=== PATIENT | male | born 1990 | race Hispanic/Latino ===

== ENCOUNTER 2022-06-18 10:10 | Observation (INO) ==
[2022-06-18] MEDS ORDERED: PIPERACILLIN SODIUM/TAZOBACTAM 3.375 GM in DEXTROSE 5% IN WATER 50 ML IV ONE (12:22)
[2022-06-18] MEDS ORDERED: VANCOMYCIN 1,500 MG in 0.9 % SODIUM CHLORIDE 500 ML IV ONE (12:22)
[2022-06-18] MEDS ORDERED: 0.9 % SODIUM CHLORIDE 1,000 ML IV ONE (12:23)
--- NOTE | 2022-06-18 12:57 | Emergency Department Note ---
Skin/Abscess/FB HPI General Chief complaint: Skin/Abscess/Rash Stated complaint: R leg swollen Time Seen by Provider: 06/18/22 12:00 Source: patient Mode of arrival: ambulatory Limitations: no limitations History of Present Illness HPI Narrative: 32-year-old male with history of IV drug use with last use several days ago presents for bilateral lower extremity cellulitis. Patient notes that he started feeling unwell on the . He had body aches and some subjective fevers and was taking ibuprofen and Tylenol for pain. 3 days ago he woke up and had left lower extremity redness and swelling, and then yesterday morning noted that they were both legs were hot and swollen. He took an antibiotic from a family member and waited to see if he would improve, but today he feels that the redness and swelling is even worse. Related Data Previous Rx's Medication Instructions Recorded buprenorphine HCl 8 mg sublingual 8 mg sublingual Q8H #90 tabs 06/04/22 tablet Allergies Allergy/AdvReac Type Severity Reaction Status Date / Time Naloxone Allergy Severe Anaphylaxis Verified 06/18/22 10:15 codeine Allergy Unknown Unknown, Verified 06/18/22 10:15 reaction happened years ago Review of Systems ROS ROS Narrative: Narrative: All systems ED: reviewed and negative except as stated. [facility] Narrative Patient History Narrative: Narrative: Medical/Surgical/Family History All Active Problems (Updated 06/18/22 @ 17:01 by Elena Sawyer PA-C) Cellulitis (Acute) Methamphetamine abuse (Acute) Opioid abuse, in remission (Acute) Encounter for monitoring of patient compliance in drug treatment program (Acute) Asthma (Acute ~1999) Anxiety (Acute ~2014) Smoker (Acute) History of intravenous drug abuse (Acute) Depression with anxiety (Acute) Scoliosis (Acute) Medical History (Updated 06/18/22 @ 17:01 by Elena Sawyer PA-C) Anxiety (~2014) Asthma (~1999) Depression with anxiety Wellbutrin - but it caused anger issues History of substance use disorder began in 2008 Opioid abuse, in remission [facility]2020 Buprenorphine 8mg #70 (has been filling rx dated back to 09/14/2015) w/ Dr Negrete Scoliosis Surgical History History of tonsillectomy (~2000) Family History Mother Family history of diabetes mellitus Alcohol abuse Methamphetamine addiction Grandfather Family history of high blood pressure Brother Addiction to drug Sister Marijuana abuse Social History Smoking Status: Never smoker Alcohol Intake Frequency: does not drink Substance Use: does not use and former substance user Exam Narrative Narrative: General: AOx3, NAD, nontoxic appearing. Pleasant and conversant. HEENT: PERRL, EOMI, normocephalic. Moist mucous membranes. Chest: Symmetric, no pain to palpation Respiratory: Lungs clear to auscultation bilaterally. No respiratory distress. Unlabored breathing. Heart: Tachycardic rate of 115 bpm and normal rhythm, no murmurs/clicks/rubs. Abdomen: Non-tender, Non distended, normal bowel tones. No organomegaly. Extremities: Warm and well perfused. Bilateral lower extremity circumferential erythema and hot to the touch, right> left. Right lower extremity with edema. The left leg has evidence of lymphangitis tracking up into the medial thigh. Patient also appears to have some erythema on the left dorsum of the hand and wrist extending to the mid forearm. Neuro: No focal deficits. Cranial nerves II-XII grossly normal. Skin: Warm dry, no obvious rashes or lesions. No evidence of abscess. Psych: Normal mood and affect Heme/Lymph: No abnormal bruising General Limitations: no limitations Course Course Course Narrative: 32-year-old male with history of IV drug use presents for bilateral lower extremity cellulitis and rule out bacteremia Reevaluation(s) Reevaluation #1: Obtain basic labs, CRP, hepatic panel, chest x-ray Establish IV and give IV fluids 30mL/kg per ideal body weight, and start Vanco and Zosyn Reevaluation #2: WBC is 11,900 with a neutrophil count of 8.97 Lactic acid is 1.4 CRP is 19 Right lower extremity Doppler ultrasound is negative for DVT but does show multiple reactive lymph nodes Patient's heart rate has improved 102 bpm with IV fluids Vital Signs Vital signs: Vital Signs Temperature 98 F 06/18/22 10:13 Pulse Rate 115 H 06/18/22 10:13 Respiratory Rate 16 06/18/22 10:13 Blood Pressure 141/84 06/18/22 10:13 Pulse Oximetry (%) 98 06/18/22 10:13 Oxygen Delivery Method 06/18/22 10:13 Temperature 98.8 F 06/18/22 16:51 Pulse Rate 89 06/18/22 16:51 Respiratory Rate 20 06/18/22 16:51 Blood Pressure 127/67 06/18/22 16:51 Pulse Oximetry (%) 100 06/18/22 16:51 Oxygen Delivery Method 06/18/22 16:51 MDM MDM Narrative Medical decision making narrative: Bilateral lower extremity cellulitis Recent IV drug use Patient is high risk for failure with outpatient management given his history of IV drug use and. I think he is appropriate for admission and ongoing IV antibiotics and evaluation. Blood cultures are also pending and if positive echocardiogram may be warranted to evaluate for endocarditis. Patient was given IV Zosyn and vancomycin and fluids. He is otherwise hemodynamically stable. I reached out to Dr. Bonilla for admission and he has accepted. Lab Data Result diagrams: 06/18/22 13:31 06/18/22 13:31 Labs: Lab Results 06/18/22 06/18/22 06/18/22 Range/Units 13:31 13:31 13:31 WBC 11.9 H (4.5-11.0) K/mcL RBC 5.11 (4.63-6.08) M/mcL Hgb 14.8 (13.7-17.5) g/dL Hct 42.2 (40.1-51.0) % MCV 82.6 (80.0-100.0) fL MCH 29.0 (26.0-34.0) pg MCHC 35.1 (31.0-36.0) g/dL RDW 12.0 (11.5-14.5) % Plt Count 312 (140-440) K/mcL MPV 10.2 (8.8-12.5) fL Immature Gran % (Auto) 1.0 H (0.0-0.5) % Neut % (Auto) 75.8 (38.0-78.0) % Lymph % (Auto) 14.4 L (15.5-49.0) % [place] % (Auto) 8.0 (1.0-12.0) % Eos % (Auto) 0.5 (0.0-7.0) % Baso % (Auto) 0.3 (0.0-2.0) % Lymph # (Auto) 1.71 (1.50-4.80) K/mcL [place] # (Auto) 0.95 H (0.10-0.90) K/mcL Eos # (Auto) 0.06 (0.00-0.70) K/mcL Baso # (Auto) 0.04 (0.00-0.30) K/mcL Seg Neutrophils % (38-78) % Lymphocytes % (15-49) % Monocytes % (Manual) (1-12) % Eosinophils % (Manual) (0-7) % Immature Gran # 0.12 H (0.00-0.05) K/mcl Absolute Neutrophils 8.97 H (1.80-8.00) K/mcL Platelet Estimate (Normal) RBC Morphology (Normal) VBG Lactic Acid 1.4 (0.5-2.0) mmol/L Sodium 134 (133-145) mmol/L Potassium 4.0 (3.3-5.1) mmol/L Chloride 94 L (96-108) mmol/L Carbon Dioxide 24 (22-30) mmol/L Anion Gap 16.0 (8.0-16.0) BUN 17 (6-20) mg/dL Creatinine 0.8 (0.7-1.2) mg/dL GFR Calculation 120 Glucose 98 (70-105) mg/dL Calcium 9.1 (8.6-10.4) mg/dL Total Bilirubin 0.5 (0.1-1.0) mg/dL AST 40 H (<40) U/L ALT 33 (<40) U/L Alkaline Phosphatase 126 H (39-117) U/L C-Reactive Protein 19.10 H (0.03-0.80) mg/dL Total Protein 8.1 (5.9-8.4) gm/dL Albumin 3.1 L (3.2-5.2) gm/dL Globulin 5.0 H (2.2-3.7) gm/dL Albumin/Globulin Ratio 0.6 L (1.0-2.3) 06/18/22 Range/Units 13:31 WBC (4.5-11.0) K/mcL RBC (4.63-6.08) M/mcL Hgb (13.7-17.5) g/dL Hct (40.1-51.0) % MCV (80.0-100.0) fL MCH (26.0-34.0) pg MCHC (31.0-36.0) g/dL RDW (11.5-14.5) % Plt Count (140-440) K/mcL MPV (8.8-12.5) fL Immature Gran % (Auto) (0.0-0.5) % Neut % (Auto) (38.0-78.0) % Lymph % (Auto) (15.5-49.0) % [place] % (Auto) (1.0-12.0) % Eos % (Auto) (0.0-7.0) % Baso % (Auto) (0.0-2.0) % Lymph # (Auto) (1.50-4.80) K/mcL [place] # (Auto) (0.10-0.90) K/mcL Eos # (Auto) (0.00-0.70) K/mcL Baso # (Auto) (0.00-0.30) K/mcL Seg Neutrophils % 77 (38-78) % Lymphocytes % 17 (15-49) % Monocytes % (Manual) 4 (1-12) % Eosinophils % (Manual) 2 (0-7) % Immature Gran # (0.00-0.05) K/mcl Absolute Neutrophils (1.80-8.00) K/mcL Platelet Estimate Normal (Normal) RBC Morphology Normal (Normal) VBG Lactic Acid (0.5-2.0) mmol/L Sodium (133-145) mmol/L Potassium (3.3-5.1) mmol/L Chloride (96-108) mmol/L Carbon Dioxide (22-30) mmol/L Anion Gap (8.0-16.0) BUN (6-20) mg/dL Creatinine (0.7-1.2) mg/dL GFR Calculation Glucose (70-105) mg/dL Calcium (8.6-10.4) mg/dL Total Bilirubin (0.1-1.0) mg/dL AST (<40) U/L ALT (<40) U/L Alkaline Phosphatase (39-117) U/L C-Reactive Protein (0.03-0.80) mg/dL Total Protein (5.9-8.4) gm/dL Albumin (3.2-5.2) gm/dL Globulin (2.2-3.7) gm/dL Albumin/Globulin Ratio (1.0-2.3) Discharge Plan Patient/Caregiver Discharge Instructions Pt seen by CERTIFIED SURGICAL TECH/FIRST ASSISTANT/PA only: Yes Clinical Impression: Cellulitis, History of intravenous drug abuse Patient Disposition: Xfer As Inpt ([facility]) Discharge Date/Time: 06/18/22 16:47
[2022-06-18 14:39] LABS: Basophils # (Auto) 0.04 K/mcL (0.00-0.30); Basophils % (Auto) 0.3 % (0.0-2.0); Eosinophils # (Auto) 0.06 K/mcL (0.00-0.70); Eosinophils % (Auto) 0.5 % (0.0-7.0); Hematocrit 42.2 % (40.1-51.0); Hemoglobin 14.8 g/dL (13.7-17.5); Lymphocytes # (Auto) 1.71 K/mcL (1.50-4.80); Lymphocytes % (Auto) 14.4 % (15.5-49.0); Mean Cell Volume 82.6 fL (80.0-100.0); Mean Corpuscular HGB Conc 35.1 g/dL (31.0-36.0); Mean Platelet Volume 10.2 fL (8.8-12.5); Monocytes # (Auto) 0.95 K/mcL (0.10-0.90); Neutrophils % (Auto) 75.8 % (38.0-78.0); Platelet Count 312 K/mcL (140-440); RBC 5.11 M/mcL (4.63-6.08); WBC 11.9 K/mcL (4.5-11.0)
--- NOTE | 2022-06-18 14:46 | XRay Report ---
INDICATION: IVDU, sepsis TECHNIQUE: AP portable semiupright chest x-ray COMPARISON: None FINDINGS: Lungs:Lungs are negative. No focal pulmonary parenchymal infiltrate or mass Heart, vascular:No significant cardiomegaly. Pulmonary vascularity is normal. No pulmonary edema or pulmonary congestion Mediastinum, samantha:No mediastinal widening. No hilar mass Pleura:No pleural fluid. No pleural-based mass or calcification Skeletal:Negative. IMPRESSION: Negative AP chest x-ray Interpreted and Authenticated by: Gamal Tinajero 06/18/22
[2022-06-18 14:51] LABS: ALT/SGPT 33 U/L (<40); AST/SGOT 40 U/L (<40); Albumin 3.1 gm/dL (3.2-5.2); Albumin/Globulin Ratio 0.6 (1.0-2.3); Alkaline Phosphatase 126 U/L (39-117); Bilirubin,Total 0.5 mg/dL (0.1-1.0); Blood Urea Nitrogen 17 mg/dL (6-20); Calcium 9.1 mg/dL (8.6-10.4); Carbon Dioxide 24 mmol/L (22-30); Chloride 94 mmol/L (96-108); Glomerular Filtration Rate 120; Glucose 98 mg/dL (70-105)
--- NOTE | 2022-06-18 15:46 | Ultrasound Report ---
INDICATION: query DVT COMPARISON: None. TECHNIQUE: Grayscale and color flow Doppler spectral imaging of the deep venous system in the right lower extremity. FINDINGS: Negative examination. No evidence for deep venous thrombosis. Negative right common femoral vein, femoral vein, popliteal vein. Posterior tibial veins and peroneal veins are negative. Greater and lesser saphenous veins are negative. There are multiple right inguinal lymph nodes. Largest lymph node measures 4.3 x 3.9 x 1.7 cm IMPRESSION: 1. Negative examination for deep venous thrombosis. Negative right lower extremity deep venous ultrasound. 2. Right inguinal adenopathy Interpreted and Authenticated by: Gamal Tinajero 06/18/22
--- NOTE | 2022-06-18 15:55 | Internal Med History&Physical ---
HPI History of Present Illness Patient information: Note initiated : 06/18/22 at 3:48 pm Service Date, if different from initiated Date: [] Patient: Meng Bolden a 32 y/o M admitted on for R leg swollen. Chief Complaint: [] History of present illness: Mr. Bolden is a 32 year old M Presents the ED with bilateral leg swelling redness and pain. Patient states he has been feeling unwell since the but especially past couple days his legs have become significantly swollen red and painful. Says he has a hard time walking today because of the pain. He also had severe headaches fevers and chills and body aches and felt like he had the flu. He took 3 doses of his brothers antibiotic but feels his symptoms are worsening. In the ED he was tachycardic and blood pressure little soft with a systolic of 96. Mild leukocytosis. Significantly elevated CRP. IV fluids and antibiotics started in ED. Patient is homeless and has been living in his car. Patient has a history of opioid abuse and follows monthly with the primary care physician. He also has a history of IV drug use with meth and has used IV meth in the past couple days as well as smoking. Review of Systems: Pertinent positives as above. Denies vomiting/chest or abdominal pain/cough/dyspnea/diarrhea. Remaining 10 point review of system reviewed negative PFSH PFSH All Active Problems (Updated 06/18/22 @ 17:01 by Elena Sawyer PA-C) Cellulitis (Acute) Methamphetamine abuse (Acute) Opioid abuse, in remission (Acute) Encounter for monitoring of patient compliance in drug treatment program (Acute) Asthma (Acute ~1999) Anxiety (Acute ~2014) Smoker (Acute) History of intravenous drug abuse (Acute) Depression with anxiety (Acute) Scoliosis (Acute) Medical History (Updated 06/18/22 @ 17:01 by Elena Sawyer PA-C) Anxiety (~2014) Asthma (~1999) Depression with anxiety Wellbutrin - but it caused anger issues History of substance use disorder began in 2008 Opioid abuse, in remission [facility] Buprenorphine 8mg #70 (has been filling rx dated back to 09/14/2015) w/ Dr Negrete Scoliosis Surgical History History of tonsillectomy (~2000) Family History Mother Family history of diabetes mellitus Alcohol abuse Methamphetamine addiction Grandfather Family history of high blood pressure Brother Addiction to drug Sister Marijuana abuse Social History marital status: single occupational status: employed occupation: [employer]) occupational exposures/hazards: Yes physical activity: weight training frequency: 5-6 times per week smoking status: Never smoker alcohol intake frequency: does not drink substance use type: does not use and former substance user counseling given: Yes counseling provided: provider counseling and treatment program MEDS/ALLERGIES Home Medications and Allergies Home Medications Medication Instructions Recorded Confirmed Type buprenorphine HCl 8 mg sublingual 8 mg sublingual Q8H #90 tabs 06/04/22 06/04/22 Rx tablet Allergies Allergy/AdvReac Type Severity Reaction Status Date / Time Naloxone Allergy Severe Anaphylaxis Verified 06/18/22 10:15 codeine Allergy Unknown Unknown, Verified 06/18/22 10:15 reaction happened years ago EXAM Constitutional Vitals: Temp Pulse Resp BP Pulse Ox O2 Del Method 98 F 102 H 16 96/76 100 06/18/22 10:13 06/18/22 14:42 06/18/22 14:42 06/18/22 14:09 06/18/22 14:42 06/18/22 10:13 Exam: General: Alert, Awake, No acute Distress, obese Eyes/N/T: EOMI, PERRL, Head/Neck: neck supple, normocephalic atraumatic CV: RRR, No murmurs, normal s1/s2 Pulm: Clear b/l, no wheezing/rhonchi/rales Abd: soft, nontender, +BS x4 Ext: no clubbing/cyanosis, b/l LE edema R>L. needle tracks antecubital fossa. legs erythematous/tender to palpation Neuro: Alert, no focal deficits, moves all extremities, CN 2-12 grossly intact, symmetrical strength b/l upper/lower, sensations intact b/l upper/lower Skin: warm/dry DATA Data Completed and Pending Labs: Labs from last 24 hours 06/18/22 06/18/22 06/18/22 13:31 13:31 13:31 WBC RBC Hgb Hct MCV MCH MCHC RDW Plt Count MPV Immature Gran % (Auto) Neut % (Auto) Lymph % (Auto) [place] % (Auto) Eos % (Auto) Baso % (Auto) Lymph # (Auto) [place] # (Auto) Eos # (Auto) Baso # (Auto) Immature Gran # Absolute Neutrophils Platelet Estimate Pending RBC Morphology Pending VBG Lactic Acid 1.4 Sodium 134 Potassium 4.0 Chloride 94 L Carbon Dioxide 24 Anion Gap 16.0 BUN 17 Creatinine 0.8 GFR Calculation 120 Glucose 98 Calcium 9.1 Total Bilirubin 0.5 AST 40 H ALT 33 Alkaline Phosphatase 126 H C-Reactive Protein 19.10 H Total Protein 8.1 Albumin 3.1 L Globulin 5.0 H Albumin/Globulin Ratio 0.6 L 06/18/22 13:31 WBC 11.9 H RBC 5.11 Hgb 14.8 Hct 42.2 MCV 82.6 MCH 29.0 MCHC 35.1 RDW 12.0 Plt Count 312 MPV 10.2 Immature Gran % (Auto) 1.0 H Neut % (Auto) 75.8 Lymph % (Auto) 14.4 L [place] % (Auto) 8.0 Eos % (Auto) 0.5 Baso % (Auto) 0.3 Lymph # (Auto) 1.71 [place] # (Auto) 0.95 H Eos # (Auto) 0.06 Baso # (Auto) 0.04 Immature Gran # 0.12 H Absolute Neutrophils 8.97 H Platelet Estimate RBC Morphology VBG Lactic Acid Sodium Potassium Chloride Carbon Dioxide Anion Gap BUN Creatinine GFR Calculation Glucose Calcium Total Bilirubin AST ALT Alkaline Phosphatase C-Reactive Protein Total Protein Albumin Globulin Albumin/Globulin Ratio A/P Narrative A/P Narrative: A: *b/l LE Cellulitis: *Flulike symptoms: *IV drug use(Meth): *Opioid abuse: Follows with PCP monthly * P: -IV abx, pending MRSA screen -BC's and serial if indicated -high risk for endocarditis, monitor -IVF, f/u vitals -Elevate legs, outline cellulitis -UDS -flu/covid screen - -CM for placement needs -ppx: Lovenox Time Spent With Patient Time: Total time spent is greater than 50% in coordination of care (as documented) at patient's floor/unit and/or counseling patient: Total time spent with greater than 50% in coordination of care (as documented) at patient's floor/unit and/or counseling patient:: Greater than 70 minutes
[2022-06-18 16:30] LABS: Eosinophils % (Manual) 2 % (0-7); Lymphocytes % 17 % (15-49); Monocytes % (Manual) 4 % (1-12); Platelet Estimate NORMAL (Normal); RBC Morphology NORMAL (Normal); Segmented Neutrophils % 77 % (38-78)
[2022-06-18] MEDS ORDERED: POTASSIUM CHLORIDE 40 MEQ in DEXTROSE 5% IN WATER 500 ML IV PRN (16:51)
[2022-06-18] MEDS ORDERED: POLYETHYLENE GLYCOL 3350 17 GM PACKET PO PRN (16:51)
[2022-06-18] MEDS ORDERED: IPRATROPIUM/ALBUTEROL 3 ML AMPUL.NEB NEB PRN (16:51)
[2022-06-18] MEDS ORDERED: ONDANSETRON 4 MG/2 ML VIAL IV PRN (16:51)
[2022-06-18] MEDS ORDERED: ACETAMINOPHEN 325 MG TABLET PO PRN (16:51)
[2022-06-18] MEDS ORDERED: VANCOMYCIN PER PHARMACY IV SCH (16:51)
[2022-06-18] MEDS ORDERED: MAGNESIUM SULFATE 2 GM/50 ML BAG IV PRN (16:51)
[2022-06-18] MEDS ORDERED: 0.9 % SODIUM CHLORIDE 1,000 ML IV SCH (16:51)
[2022-06-18] MEDS ORDERED: POTASSIUM CHLORIDE 20 MEQ TABLET PO PRN ×2 (16:51)
[2022-06-18] MEDS: PIPERACILLIN SODIUM/TAZOBACTAM 3.375 GM in DEXTROSE 5% IN WATER 50 ML IV SCH (17:55)
[2022-06-18] MEDS: oxyCODONE/APAP 5/325MG TABLET PO PRN ×2 (18:03→22:18)
[2022-06-18 18:06] LABS: Amphetamine Screen,Urine Suspect positive; Barbiturate Screen,Urine None detected; Benzodiazepines Screen,Urine None detected; Cannabinoid Screen,Urine None detected; Cocaine Screen,Urine None detected; Opiate Screen,Urine None detected; Oxycodone, Urine Screen None detected; Phencyclidine Screen,Urine None detected
[2022-06-18] MEDS: 0.9 % SODIUM CHLORIDE 10 ML SYRINGE IV SCH (22:27)
[2022-06-18] MEDS: DOCUSATE SODIUM 100 MG CAPSULE PO SCH (22:27)
[2022-06-18] MEDS: SENNOSIDES 1 TABLET PO PRN (22:27)
[2022-06-18] MEDS ORDERED: VANCOMYCIN 1,500 MG in 0.9 % SODIUM CHLORIDE 500 ML IV SCH (23:00)
[2022-06-19] MEDS: PIPERACILLIN SODIUM/TAZOBACTAM 3.375 GM in DEXTROSE 5% IN WATER 50 ML IV SCH ×4 (00:26→17:31)
[2022-06-19] MEDS: oxyCODONE/APAP 5/325MG TABLET PO PRN ×5 (03:26→21:44)
[2022-06-19] MEDS: 0.9 % SODIUM CHLORIDE 10 ML SYRINGE IV SCH ×3 (05:53→21:45)
--- NOTE | 2022-06-19 07:57 | Internal Med Progress Note ---
SUBJECTIVE Subjective Patient information: Note initiated : 06/19/22 at 7:54 am Service Date, if different from initiated Date: [] Patient: Meng Bolden a 32 y/o M admitted on 06/18/22 for R leg swollen- Cellulitis. Chief Complaint: [] Interval history: History of present illness: Mr. Bolden is a 32 year old M Presents the ED with bilateral leg swelling redness and pain. Patient states he has been feeling unwell since the but especially past couple days his legs have become significantly swollen red and painful. Says he has a hard time walking today because of the pain. He also had severe headaches fevers and chills and body aches and felt like he had the flu. He took 3 doses of his brothers antibiotic but feels his symptoms are worsening. In the ED he was tachycardic and blood pressure little soft with a systolic of 96. Mild leukocytosis. Significantly elevated CRP. IV fluids and antibiotics started in ED. Patient is homeless and has been living in his car. Patient has a history of opioid abuse and follows monthly with the primary care physician. He also has a history of IV drug use with meth and has used IV meth in the past couple days as well as smoking. 06/19 Leg pain still significant but slightly improved. Mild leukocytosis improving. Preliminary blood culture negative so far. Hypokalemia noted and we will replete. Follow-up. CRP still quite high but mildly improved. Erythema still prominent but brightness mildly improved. No regression in surface area yet. Review of Systems: denies headache/fever/chills/nausea/vomiting/chest or abdominal pain/cough/dyspnea/diarrhea. Otherwise see above. Constitutional Vitals: Vital Signs Temp Pulse Resp BP Pulse Ox O2 Del Method 97.8 F 84 20 112/73 99 06/19/22 03:07 06/19/22 03:07 06/19/22 03:07 06/19/22 03:07 06/19/22 03:07 06/19/22 03:07 Period Temp Pulse Resp BP Sys/Delgado Pulse Ox O2 Del Method O2 Flow Rate Last 24 Hr 97.2 F-98.8 F 84-115 16-20 96-141/65-91 97-100 Room Air-Room Air Intake and Output 06/18/22 06/19/22 06/19/22 19:59 03:59 11:59 Intake Total 1600 950 Balance 1600 950 Weight 114.623 kg 114.623 kg Intake & Output: Intake & Output 06/18/22 06/19/22 06/19/22 19:59 03:59 11:59 Intake Total 1600 950 Balance 1600 950 Weight 114.623 kg 114.623 kg Intake: IV 1600 550 Sodium Chloride 0.9% 1,000 ml @ 1000 Wide Open IV BOLUS ONE Rx#: [id number] Zosyn 3.375 gm In Dextrose 5% 100 50 in Water 50 ml @ 100 mls/hr IV Q6H [facility] Rx#:[id number] Vancomycin 1,500 mg In Sodium 500 500 Chloride 0.9% 500 ml @ 333.3 mls/hr IV Q12H [facility] Rx#: [id number] Oral 400 Other: Meal Dinner Percent of Meal Consumed 100% Feeding Ability Independent Urine Appearance Clear Urine Color Dark Yellow Urine Odor Normal Stool Size Large Stool Color Brown Stool Consistency Normal for Patient Soft Formed # Bowel Movements 1 Exam: General: Alert, Awake, No acute Distress, obese Eyes/N/T: EOMI, Head/Neck: neck supple, CV: RRR, No murmurs, Pulm: Clear b/l, no wheezing/rhonchi/rales Abd: soft, nontender, +BS x4 Ext: no clubbing/cyanosis, b/l LE edema R>L. needle tracks antecubital fossa. legs erythematous/tender to palpation slightly improved Neuro: Alert, no focal deficits, moves all extremities, Skin: warm/dry OBJ DATA Labs CBC & Chem 7: 06/19/22 07:36 06/19/22 07:35 Labs: Abnormal Lab Results 06/18/22 06/18/22 06/18/22 17:17 13:31 13:31 WBC 11.9 H Immature Gran % (Auto) 1.0 H Lymph % (Auto) 14.4 L [place] # (Auto) 0.95 H Immature Gran # 0.12 H Absolute Neutrophils 8.97 H Chloride 94 L AST 40 H Alkaline Phosphatase 126 H C-Reactive Protein 19.10 H Albumin 3.1 L Globulin 5.0 H Albumin/Globulin Ratio 0.6 L Ur Amphetamines Screen Suspect positive A Meds: Medications Acetaminophen (Acetaminophen 325 Mg Tablet) 650 mg PO Q6HP PRN; Protocol PRN Reason: Per Pain Protocol/Fever > 101 Albuterol/Ipratropium (Ipratropium/Albuterol 3 Ml Ampul.Neb) 3 ml NEB Q4HP PRN PRN Reason: Shortness Of Breath Docusate Sodium (Docusate Sodium 100 Mg Capsule) 100 mg PO BID [facility] Last Admin: 06/18/22 22:27 Dose: 100 mg Enoxaparin Sodium (Enoxaparin 40 Mg/0.4 Ml Syringe) 40 mg SQ DAILY [facility] Potassium Chloride 40 meq/ (Dextrose) 520 mls @ 130 mls/hr IV UD PRN PRN Reason: Potassium < 3 Magnesium Sulfate (Magnesium Sulfate) 2 gm in 50 mls @ 50 mls/hr IV UD PRN PRN Reason: Magnesium </= 1.6 Piperacillin Sod/Tazobactam (Sod 3.375 gm/ Dextrose) 50 mls @ 100 mls/hr IV Q6H [facility]; Protocol Last Admin: 06/19/22 05:53 Dose: 100 mls/hr Vancomycin HCl 1,500 mg/ (Sodium Chloride) 500 mls @ 333.3 mls/hr IV Q12H [facility] Last Infusion: 06/19/22 00:00 Dose: Infused Ondansetron HCl (Ondansetron 4 Mg/2 Ml Vial) 4 mg IV Q4HP PRN PRN Reason: Nausea And Vomiting Oxycodone/Acetaminophen (Oxycodone/Apap 5/325mg Tablet) 1 tab PO Q4HP PRN PRN Reason: PAIN LEVEL 3-6 Last Admin: 06/19/22 03:26 Dose: 1 tab Polyethylene Glycol (Polyethylene Glycol 3350 17 Gm Packet) 17 gm PO DAILYP PRN PRN Reason: Constipation Potassium Chloride (Potassium Chloride 20 Meq Tablet) 40 meq PO UD PRN PRN Reason: Potssium is 3-3.5 Potassium Chloride (Potassium Chloride 20 Meq Tablet) 40 meq PO UD PRN PRN Reason: Potassium < 3 Senna (Sennosides 1 Tablet) 2 tab PO DAILYP PRN PRN Reason: Constipation Last Admin: 06/18/22 22:27 Dose: 2 tab Sodium Chloride (0.9 % Sodium Chloride 10 Ml Syringe) 10 ml IV Q8 [facility] Last Admin: 06/19/22 05:53 Dose: Not Given Vancomycin HCl (Vancomycin Per Pharmacy) 1 order IV UD [facility]; Protocol A/P Narrative A/P Narrative: A: *b/l LE Cellulitis: -Leukocytosis improving, crp slowly improving *Flulike symptoms: -covid/flu neg *IV drug use(Meth): -UDS+ *Opioid abuse: Follows with PCP monthly *Hypokalemia: P: -IV abx, pending MRSA screen neg -BC's and serial if indicated -high risk for endocarditis, monitor -IVF finish, f/u vitals -Elevate legs, outline cellulitis -Monitor and replace electrolytes -CM for placement needs -ppx: Lovenox Time Spent With Patient Time: Total time spent is greater than 50% in coordination of care (as documented) at patient's floor/unit and/or counseling patient: Total time spent with greater than 50% in coordination of care (as documented) at patient's floor/unit and/or counseling patient:: 35 - 50 minutes
[2022-06-19 08:38] LABS: Basophils # (Auto) 0.05 K/mcL (0.00-0.30); Basophils % (Auto) 0.5 % (0.0-2.0); Eosinophils # (Auto) 0.09 K/mcL (0.00-0.70); Eosinophils % (Auto) 0.9 % (0.0-7.0); Hematocrit 38.5 % (40.1-51.0); Hemoglobin 13.1 g/dL (13.7-17.5); Lymphocytes # (Auto) 1.56 K/mcL (1.50-4.80); Lymphocytes % (Auto) 15.4 % (15.5-49.0); Mean Cell Volume 83.2 fL (80.0-100.0); Mean Platelet Volume 9.9 fL (8.8-12.5); Monocytes # (Auto) 0.84 K/mcL (0.10-0.90); Monocytes % (Auto) 8.3 % (1.0-12.0); Neutrophils % (Auto) 73.8 % (38.0-78.0); Platelet Count 281 K/mcL (140-440); RBC 4.63 M/mcL (4.63-6.08); Red Cell Distribution Width 12.4 % (11.5-14.5); WBC 10.1 K/mcL (4.5-11.0)
[2022-06-19] MEDS: DOCUSATE SODIUM 100 MG CAPSULE PO SCH ×2 (08:43→21:45)
[2022-06-19] MEDS: ENOXAPARIN 40 MG/0.4 ML SYRINGE SQ SCH (08:44)
[2022-06-19 09:26] LABS: ALT/SGPT 35 U/L (<40); AST/SGOT 34 U/L (<40); Albumin 2.6 gm/dL (3.2-5.2); Albumin/Globulin Ratio 0.6 (1.0-2.3); Alkaline Phosphatase 122 U/L (39-117); Bilirubin,Direct < 0.2 mg/dL (0-0.3); Bilirubin,Total 0.5 mg/dL (0.1-1.0); Blood Urea Nitrogen 13 mg/dL (6-20); Calcium 8.1 mg/dL (8.6-10.4); Carbon Dioxide 25 mmol/L (22-30); Chloride 101 mmol/L (96-108); Globulin 4.3 gm/dL (2.2-3.7); Glomerular Filtration Rate 126; Glucose 97 mg/dL (70-105); Lactate Dehydrogenase 170 U/L (135-225); Triglycerides 160 mg/dL (<150); Uric Acid 4.3 mg/dL (2.5-8.0)
[2022-06-19] MEDS ORDERED: POTASSIUM CHLORIDE 20 MEQ TABLET PO SCH (09:45)
--- NOTE | 2022-06-19 14:58 | Discharge Summary ---
Discharge Provider Provider IMPORTANT FOLLOW-UP INFORMATION FOR PCP: Patient information: Note initiated : 06/19/22 at 2:56 pm Service Date, if different from initiated Date: [] Patient: Meng Bolden 32 y/o M admitted on 06/18/22 for R leg swollen- Cellulitis. Chief Complaint: [] Date of admission: 06/18/22 16:47 Discharge date: 06/20/22 Primary care physician: PCP No Consults: 06/18/22 Consult to Physician [CONS] Stat Comment: Consulting Provider: Partha Gaspar Reason For Exam: Physician to Consult COURSE Hospital Course Hospital course: History of present illness: Mr. Bolden is a 32 year old M Presents the ED with bilateral leg swelling redness and pain. Patient states he has been feeling unwell since the but especially past couple days his legs have become significantly swollen red and painful. Says he has a hard time walking today because of the pain. He also had severe headaches fevers and chills and body aches and felt like he had the flu. He took 3 doses of his brothers antibiotic but feels his symptoms are worsening. In the ED he was tachycardic and blood pressure little soft with a systolic of 96. Mild leukocytosis. Significantly elevated CRP. IV fluids and antibiotics started in ED. Patient is homeless and has been living in his car. Patient has a history of opioid abuse and follows monthly with the primary care physician. He also has a history of IV drug use with meth and has used IV meth in the past couple days as well as smoking. 06/19 Leg pain still significant but slightly improved. Mild leukocytosis improving. Preliminary blood culture negative so far. Hypokalemia noted and we will replete. Follow-up. CRP still quite high but mildly improved. Erythema still prominent but brightness mildly improved. No regression in surface area yet. 06/20 Patient continues to feel little better each day. Blood cultures negative. Stable for discharge. A: *b/l LE Cellulitis: *IV drug use(Meth): -UDS+ *Opioid abuse: Follows with PCP monthly *Hypokalemia: P: -abx Discharge diagnosis: Bilateral lower extremity cellulitis IV drug use opioid abuse hypokalemia Time Spent with Patient Time attestation: Total time spent providing and/or coordinating discharge services: Time spent: Greater than 30 minutes EXAM Constitutional Vitals: Temp Pulse Resp BP Pulse Ox O2 Del Method 98.2 F 84 20 120/67 97 06/19/22 07:54 06/19/22 07:54 06/19/22 07:54 06/19/22 07:54 06/19/22 07:54 06/19/22 07:54 Discharge Data Data Completed and Pending Labs on day of discharge: Labs from last 24 hours 06/19/22 06/19/22 06/19/22 07:36 07:36 07:35 WBC 10.1 RBC 4.63 Hgb 13.1 L Hct 38.5 L MCV 83.2 MCH 28.3 MCHC 34.0 RDW 12.4 Plt Count 281 MPV 9.9 Immature Gran % (Auto) 1.1 H Neut % (Auto) 73.8 Lymph % (Auto) 15.4 L [place] % (Auto) 8.3 Eos % (Auto) 0.9 Baso % (Auto) 0.5 Lymph # (Auto) 1.56 [place] # (Auto) 0.84 Eos # (Auto) 0.09 Baso # (Auto) 0.05 Seg Neutrophils % Lymphocytes % Monocytes % (Manual) Eosinophils % (Manual) Immature Gran # 0.11 H Absolute Neutrophils 7.45 Platelet Estimate RBC Morphology Sodium 138 Potassium 3.2 L Chloride 101 Carbon Dioxide 25 Anion Gap 12.0 BUN 13 Creatinine 0.7 GFR Calculation 126 Glucose 97 Uric Acid 4.3 Calcium 8.1 L Phosphorus 3.0 Magnesium 2.4 Total Bilirubin 0.5 Direct Bilirubin < 0.2 GGT 48 AST 34 ALT 35 Alkaline Phosphatase 122 H Lactate Dehydrogenase 170 C-Reactive Protein 13.40 H Total Protein 6.9 Albumin 2.6 L Globulin 4.3 H Albumin/Globulin Ratio 0.6 L Triglycerides 160 H Urine Opiates Screen Ur Opiates Confirm Ur Oxycodone Screen U Oxycod/Oxymor Confirm Urine Methadone Screen Ur Methadone Confirm Ur Barbiturates Screen Ur Barbiturate Confirm Ur Phencyclidine Scrn Urine PCP Confirm Ur Amphetamines Screen U Amphetamines Confirm U Benzodiazepines Scrn Ur Benzodiazepine, Qnt Urine Cocaine Screen Urine Cocaine Confirm U Cannabinoids Confirm U Marijuana (THC) Screen 06/18/22 06/18/22 17:17 13:31 WBC RBC Hgb Hct MCV MCH MCHC RDW Plt Count MPV Immature Gran % (Auto) Neut % (Auto) Lymph % (Auto) [place] % (Auto) Eos % (Auto) Baso % (Auto) Lymph # (Auto) [place] # (Auto) Eos # (Auto) Baso # (Auto) Seg Neutrophils % 77 Lymphocytes % 17 Monocytes % (Manual) 4 Eosinophils % (Manual) 2 Immature Gran # Absolute Neutrophils Platelet Estimate Normal RBC Morphology Normal Sodium Potassium Chloride Carbon Dioxide Anion Gap BUN Creatinine GFR Calculation Glucose Uric Acid Calcium Phosphorus Magnesium Total Bilirubin Direct Bilirubin GGT AST ALT Alkaline Phosphatase Lactate Dehydrogenase C-Reactive Protein Total Protein Albumin Globulin Albumin/Globulin Ratio Triglycerides Urine Opiates Screen None detected Ur Opiates Confirm TNP Ur Oxycodone Screen None detected U Oxycod/Oxymor Confirm TNP Urine Methadone Screen None detected Ur Methadone Confirm TNP Ur Barbiturates Screen None detected Ur Barbiturate Confirm TNP Ur Phencyclidine Scrn None detected Urine PCP Confirm TNP Ur Amphetamines Screen Suspect positive A U Amphetamines Confirm Pending U Benzodiazepines Scrn None detected Ur Benzodiazepine, Qnt TNP Urine Cocaine Screen None detected Urine Cocaine Confirm TNP U Cannabinoids Confirm TNP U Marijuana (THC) Screen None detected Preliminary micro results at discharge 06/18/22 13:50 Blood Culture - Preliminary Blood Discharge Plan Patient/Caregiver Discharge Instructions Activity: increase activity as tolerated Diet: Regular Diet Activity Restrictions/Additional Instructions: Follow-up with PCP in 3 to 7 days. Prescriptions: New cephalexin 500 mg capsule 500 mg PO QID Qty: 16 0RF Continued buprenorphine HCl 8 mg tablet, sublingual 8 mg sublingual Q8H Qty: 90 0RF Rx Instructions: refill today 06/04/22 Follow Up Plan Patient Disposition: Home, Self-Care Prognosis: Undetermined Overall status at discharge: patient is progressing back to baseline Discharge Orders: Discharge Order (Routine); Ordered 06/20/22 Ordered By: Partha Gaspar
[2022-06-19] MEDS: SENNOSIDES 1 TABLET PO PRN (21:45)
[2022-06-20] MEDS: PIPERACILLIN SODIUM/TAZOBACTAM 3.375 GM in DEXTROSE 5% IN WATER 50 ML IV SCH ×4 (00:29→12:18)
[2022-06-20] MEDS: oxyCODONE/APAP 5/325MG TABLET PO PRN ×4 (01:51→12:10)
[2022-06-20] MEDS: 0.9 % SODIUM CHLORIDE 10 ML SYRINGE IV SCH ×2 (05:32→14:05)
[2022-06-20 07:41] LABS: Blood Urea Nitrogen 12 mg/dL (6-20); Calcium 9.1 mg/dL (8.6-10.4); Carbon Dioxide 26 mmol/L (22-30); Chloride 104 mmol/L (96-108); Glomerular Filtration Rate 135; Glucose 111 mg/dL (70-105)
[2022-06-20] MEDS ORDERED: CLINDAMYCIN IN 0.9 % SOD CHLOR 600 MG/50 ML BAG IV SCH (08:00)
[2022-06-20] MEDS: ENOXAPARIN 40 MG/0.4 ML SYRINGE SQ SCH (09:04)
[2022-06-20] MEDS: DOCUSATE SODIUM 100 MG CAPSULE PO SCH (09:04)
[2022-06-20] MEDS ORDERED: cefTRIAXone 2 GM VIAL IM SCH (12:30)
== END 2022-06-20 15:20 | disposition home or self-care (01) ==
LOC: ED 10:10 → INTOOBSV 16:47 → MEDSUR 16:47
PROVIDERS: ADMIT Internal Medicine; ATTEND Internal Medicine